=== PATIENT | female | born 1995 | race Caucasian/White ===

== ENCOUNTER 2017-09-23 15:32 | Emergency (ER) | payer BC ==
[2017-09-23] MEDS ORDERED: EPINEPHrine 1 MG/ML SDV IM ONE (15:51)
[2017-09-23] MEDS ORDERED: Sodium Chloride 0.9% 1,000 ML IV ONE (15:51)
[2017-09-23] MEDS ORDERED: Famotidine 20 MG/2 ML SDV IVPUSH ONE (15:52)
[2017-09-23] MEDS ORDERED: methylPREDNISolone Sodium Succinate 125 MG/2 ML SDV IVPUSH ONE (15:52)
--- NOTE | 2017-09-23 16:08 | EDM.PDOC ---
ED HPI GENERAL MEDICAL PROBLEM - General Chief Complaint: Allergic Reaction Stated Complaint: ALLERGIC RX AND HEART RACING Time Seen by Provider: 09/23/17 15:43 Source of Information: Reports: Patient History Limitations: Reports: No Limitations - History of Present Illness INITIAL COMMENTS - FREE TEXT/NARRATIVE: The patient is a 22-year-old female with a chief complaint of rash, wheezing, and a feeling of her heart racing. The patient is an athlete. She was running on a treadmill in the gym when she started to get a rash. She states that she first felt it on her arms and her legs. She had some wheezing at that time as well. She felt like her heart was racing. She saw the wellness trainer who gave her Zyrtec. Since then she states that she's been feeling a little bit better. However she continues to have a significant rash. She still feels some chest tightness. No throat swelling or tongue swelling. No history of similar symptoms previously. States that she is allergic to penicillin but doesn't have any other known allergies. No new exposures. She last ate about 3 hours ago, ate a salad and some vegan chicken nuggets. Treatments PROVER: Reports: Other (see below) Other Treatments PROVER: zyrtec - Related Data Allergies Allergy/AdvReac Type Severity Reaction Status Date / Time Penicillins Allergy Hives Verified 09/23/17 15:38 Home Meds: Home Meds EPINEPHrine [Epipen] 0.3 mg IM ONETIME PRN #1 pack 09/23/17 [Rx] Past Medical History - Past Health History Medical/Surgical History: Denies Medical/Surgical History Social & Family History - Tobacco Use Smoking Status *Q: Never Smoker - Recreational Drug Use Recreational Drug Use: No ED ROS ALLERGIC REACTION - Review of Systems Review Of Systems: See Below Constitutional: Reports: No Symptoms HEENT: Reports: No Symptoms Respiratory: Reports: Wheezing Cardiovascular: Reports: Palpitations Endocrine: Reports: No Symptoms GI/Abdominal: Denies: Vomiting Skin: Reports: Rash ED EXAM GENERAL NO PERIP PULSE - Physical Exam Exam: See Below Exam Limited By: No Limitations General Appearance: Alert, WD/WN, No Apparent Distress Eye Exam: Bilateral Eye: Normal Inspection, PERRL Ears: Normal External Exam Nose: Normal Inspection Throat/Mouth: Normal Inspection, Normal Oropharynx, Normal Voice, No Airway Compromise Head: Atraumatic, Normocephalic Neck: Normal Inspection, Supple, Non-Tender, Full Range of Motion Respiratory/Chest: No Respiratory Distress, No Accessory Muscle Use, Chest Non- Tender, Other (Couple of scattered wheezes, no distress) Cardiovascular: Normal Peripheral Pulses, Regular Rate, Rhythm, No Edema, No Murmur, Tachycardia GI/Abdominal: Soft, Non-Tender, No Distention. No: Rebound Back Exam: Normal Inspection Extremities: Normal Inspection Neurological: Alert, Oriented, Normal Cognition, No Motor/Sensory Deficits Psychiatric: Normal Affect, Normal Mood Skin Exam: Warm, Dry, Intact, Other (Urticarial erythematous rash diffusely affecting the lower extremities and the upper extremities and trunk) Course - Vital Signs Last Recorded V/S: Last Vital Signs Temp 36.4 C 09/23/17 15:38 Pulse 64 09/23/17 17:38 Resp 12 09/23/17 17:38 BP 130/62 09/23/17 17:38 Pulse Ox 100 09/23/17 17:38 - Orders/Labs/Meds Meds: Medications Discontinued Medications Generic Name Dose Route Start Last Admin Trade Name Rolf PRN Reason Stop Dose Admin Epinephrine HCl 0.3 mg 09/23/17 15:51 09/23/17 16:14 Adrenalin 1:1000 IM 09/23/17 15:52 0.3 mg ONETIME ONE Administration Famotidine 20 mg 09/23/17 15:52 09/23/17 16:18 Pepcid IVPUSH 09/23/17 15:53 20 mg ONETIME ONE Administration Sodium Chloride 1,000 mls @ 1,000 mls/hr 09/23/17 15:51 09/23/17 16:13 Normal Saline IV 09/23/17 16:50 1,000 mls/hr ONETIME ONE Administration Methylprednisolone Sodium Succinate 125 mg 09/23/17 15:52 09/23/17 16:19 Solu-Medrol IVPUSH 09/23/17 15:53 125 mg ONETIME ONE Administration - Re-Assessments/Exams Free Text/Narrative Re-Assessment/Exam: 09/23/17 16:08 Given subjective feeling of chest tightness and a couple of wheezes on auscultation, we will go ahead and give epinephrine. Possibly exercised induced versus other environmental exposure. Counseled patient at length regarding these possibilities. She will be discharged with an EpiPen autoinjector and plan to follow up with primary care physician. Discussed return precautions. 09/23/17 17:37 Patient is feeling much better. Her symptoms have completely resolved. Again, no clear provoking factor other than possible exercise. She will follow-up with her primary doctor for further care. Departure - Departure Time of Disposition: 18:00 Disposition: Home, Self-Care 01 Clinical Impression: Wheezing, Urticaria - Discharge Information Prescriptions: EPINEPHrine [Epipen] 0.3 mg IM ONETIME PRN #1 pack PRN Reason: Allergies Instructions: Anaphylactic Reaction Referrals: PCP,None [Primary Care Provider] - Forms: ED Department Discharge Additional Instructions: 1. Take benadryl (diphenhydramine) as needed for itching/rash/allergic symptoms. Use Epipen if you have a similar reaction with any difficulty breathing or wheezing or tongue or throat swelling. Immediately come in to the Emergency Department if you use the Epipen. 2. Follow up with your primary doctor for further care.
== END 2017-09-23 17:40 | disposition home or self-care (01) ==
LOC: JD.ED 15:32
DX: L50.9 Urticaria, unspecified (principal); R06.2 Wheezing; Z88.0 Allergy status to penicillin
CPT/HCPCS: 96361; 96372; 96374; 96375; 99283; J0171; J2930; J7040; 99282